=== PATIENT | male | born 2000 | race Caucasian/White ===

== ENCOUNTER 2024-08-03 16:23 | Inpatient (IN) | payer MEDICAID ==
[~2024-08-03] VITALS: Ht 177.8 cm; Wt 90.7 kg
[2024-08-03 16:46] LABS: BASOPHILS ABSOLUTE AUTO 0.05 K/mm3 (0.00-0.23); BASOPHILS PERCENT AUTO 0 % (0-2); EOSINOPHILS ABSOLUTE AUTO 0.04 K/mm3 (0.00-0.68); EOSINOPHILS PERCENT AUTO 0 % (0-6); Hematocrit 42.1 % (37.0-53.0); IMMATURE GRAN ABSOLUTE AUTO 0.21 K/mm3 (0.00-0.10); IMMATURE GRAN PERCENT AUTO 1 % (0-1); LYMPHOCYTES ABSOLUTE AUTO 0.65 K/mm3 (0.84-5.20); LYMPHOCYTES PERCENT AUTO 3 % (21-46); MONOCYTES ABSOLUTE AUTO 1.35 K/mm3 (0.16-1.47); MONOCYTES PERCENT AUTO 6 % (4-13); Mean Corpuscular HGB 31.6 pg (26.0-34.0); Mean Corpuscular HGB Conc 35.6 g/dL (31.5-36.5); Mean Corpuscular Volume 89 fL (80-100); Mean Platelet Volume 10.4 fL (9.1-12.4); NEUTROPHILS ABSOLUTE AUTO 19.18 K/mm3 (1.96-9.15); NEUTROPHILS PERCENT AUTO 89 % (41-73); Platelet Count 189 K/mm3 (150-400); RDW Coefficient Variation 12.8 % (11.7-14.2); RDW Standard Deviation 41.8 fL (35.1-46.3); Red Blood Cell Count 4.75 M/mm3 (4.30-5.90); White Blood Cell Count 21.48 K/mm3 (4.00-11.30)
[2024-08-03 17:03] LABS: Albumin, Blood 3.6 g/dL (3.4-5.0); Albumin/Globulin Ratio 0.9 (0.8-1.8); Bilirubin, Total 0.9 mg/dL (0.1-1.0); Bun/Creatinine Ratio 17.5 (12.0-20.0); Calcium, Blood 9.4 mg/dL (8.5-10.1); Creatinine, Blood 0.86 mg/dL (0.60-1.20); Globulin, Blood 4.1 g/dL (2.2-4.0); Potassium, Blood 3.3 mmol/L (3.5-5.5); Total Protein, Blood 7.7 g/dL (6.4-8.2)
[2024-08-03] MEDS ORDERED: Ketorolac Tromethamine 30mg Vial IV ONE (17:10)
[2024-08-03] MEDS ORDERED: Ondansetron HCl 2 MG / ML 2ML Vial IV ONE (17:10)
[2024-08-03] MEDS ORDERED: Morphine Sulfate 4 MG/1 ML Injection IV ONE (17:50)
[2024-08-03] MEDS ORDERED: Piperacillin/Tazobactam Sod 4.5 GM in NS 100 ML IV ONE (18:20)
[2024-08-03] MEDS ORDERED: NS 1,000 ML IV SCH (18:25)
[2024-08-03] MEDS ORDERED: Acetaminophen 325 MG TABLET PO PRN (19:15)
[2024-08-03] MEDS ORDERED: FLU VACC TS2024-25(6MOS UP)/PF 45 MCG/0.5 ML SYRINGE IM ONE (19:15)
[2024-08-03] MEDS ORDERED: HYDROmorphone HCl/Pf 1MG SYR IV PRN (19:15)
[2024-08-03] MEDS ORDERED: Ondansetron HCl 2 MG / ML 2ML Vial IV PRN (19:15)
[2024-08-03] MEDS ORDERED: OxyCODONE HCL 5 MG TAB PO PRN (19:15)
[2024-08-03] MEDS ORDERED: Lactated Ringer's 1,000 ML IV SCH (19:30)
[2024-08-03 22:03] VITALS: BP 125/62
[2024-08-04] VITALS (19 sets, daily range): BP systolic 103–135; BP diastolic 48–93
[2024-08-04] MEDS ORDERED: Piperacillin/Tazobactam Sod 3.375 GM in NS 100 ML IV SCH
[2024-08-04] MEDS ORDERED: Ketorolac Tromethamine 15mg Vial IV PRN
[2024-08-04] MEDS ORDERED: NS 250 ML IV PRN (01:05)
--- NOTE | 2024-08-04 06:00 | NUR ---
SHIFT SUMMARY: JANET IS A&OX4. VSS, NO ACUTE EVENTS OVERNIGHT. HE WAS MADE NPO AT MIDNIGHT IN ANTICIPATION OF SURGICAL INTERVENTION TODAY. HE IS URINATING WITHOUT DIFFICULTY, IS INDEPENDENT IN THE ROOM, AND THE IV TO THE RIGHT AC IS PATENT, IV FLUIDS INFUSING. HE REPORTS ADEQUATE PAIN MANAGEMENT WITH MEDICATIONS PER MAR. HE IS LYING IN BED WITH THE CALL LIGHT IN REACH. WILL GIVE REPORT TO DAY SHIFT RN.
[2024-08-04 06:50] LABS: BASOPHILS ABSOLUTE AUTO 0.04 K/mm3 (0.00-0.23); BASOPHILS PERCENT AUTO 0 % (0-2); EOSINOPHILS ABSOLUTE AUTO 0.04 K/mm3 (0.00-0.68); EOSINOPHILS PERCENT AUTO 0 % (0-6); Hematocrit 36.3 % (37.0-53.0); Hemoglobin 12.8 g/dL (13.5-17.5); IMMATURE GRAN ABSOLUTE AUTO 0.19 K/mm3 (0.00-0.10); IMMATURE GRAN PERCENT AUTO 1 % (0-1); LYMPHOCYTES ABSOLUTE AUTO 0.69 K/mm3 (0.84-5.20); LYMPHOCYTES PERCENT AUTO 4 % (21-46); MONOCYTES ABSOLUTE AUTO 1.26 K/mm3 (0.16-1.47); MONOCYTES PERCENT AUTO 7 % (4-13); Mean Corpuscular HGB Conc 35.3 g/dL (31.5-36.5); Mean Corpuscular Volume 91 fL (80-100); Mean Platelet Volume 10.8 fL (9.1-12.4); NEUTROPHILS ABSOLUTE AUTO 14.99 K/mm3 (1.96-9.15); NEUTROPHILS PERCENT AUTO 87 % (41-73); Platelet Count 145 K/mm3 (150-400); RDW Coefficient Variation 13.1 % (11.7-14.2); RDW Standard Deviation 43.4 fL (35.1-46.3); White Blood Cell Count 17.21 K/mm3 (4.00-11.30)
[2024-08-04 07:19] LABS: Magnesium, Blood 1.9 mg/dL (1.6-2.4)
[2024-08-04 07:20] LABS: Calcium, Blood 8.4 mg/dL (8.5-10.1); Creatinine, Blood 0.87 mg/dL (0.60-1.20); Potassium, Blood 3.5 mmol/L (3.5-5.5)
[2024-08-04] MEDS ORDERED: propofoL 20 ML IV ONE (09:14)
[2024-08-04] MEDS ORDERED: FentaNYL Citrate 50 MCG/ML 2 ML Injection ONE ×2 (09:14→11:41)
[2024-08-04] MEDS ORDERED: Midazolam HCl 1MG / ML 2ML Vial ONE (09:14)
[2024-08-04] MEDS ORDERED: Lactated Ringer's 1,000 ML IV SCH (09:15)
--- NOTE | 2024-08-04 09:35 | NUR ---
PT HAS 20G IV TO RIGHT AC THAT FLUSHES WELL AND FLOWS TO GRAVITY.
[2024-08-04] MEDS ORDERED: Bupivacaine 0.5% HCl 5 MG/ML 30MLVIAL ONE (10:11)
--- NOTE | 2024-08-04 10:38 | NUR ---
0930 PT BROUGHT FROM FLOOR TO DAY SURGERY FOR PROCEDURE. VSS. PT ON RA. History, Chart, Medications and Allergies reviewed before start of procedure. Lungs clear T/O to Auscultation. Patient confirms NPO status and agrees with scheduled surgery. Pre-Op teaching done. Pt verbalizes understanding. PT REPORTS TOO PAINFUL FOR CHLORHEXIDINE/SHAVE PREP, OR TEAM NOTIFIED. PT BELONGINGS LEFT IN ROOM ON MEDICAL FLOOR FOR SAFEKEEPING. PT PHONE GIVEN TO MOM FOR SAFEKEEPING.
[2024-08-04] MEDS ORDERED: Ketorolac Tromethamine 30mg Vial ONE (10:59)
[2024-08-04] MEDS ORDERED: Sugammadex Sodium 200 MG/2ML SDV (100 MG/ML) ONE (10:59)
[2024-08-04] MEDS ORDERED: Rocuronium Bromide 10 MG/ML 5ML Injection IV ONE (11:41)
[2024-08-04] MEDS ORDERED: Lactated Ringer's 1,000 ML IV ONE (12:48)
--- NOTE | 2024-08-04 14:35 | NUR ---
arrival PT ARRIVED TO UNIT FROM PACU S/P LAP APPY. MAISHA DRAIN IN PLACE PATENT AND DRAINING. LAP SITES CDI X3, ABD SOFT TO TOUCH. PT TIRED ON ARRIVAL BUT WAKING UP TOLERATING SIPS OF WATER. PILLOW PROVIDED AND EDUCATED ON SPLINTING WITH COUGHING. PT REPORTS PAIN TOLERABLE AT THIS TIME. DENIES NEED FOR ANY MEDICATION. EDUCATED UNIT MANAGER LIGHT USE MOM AT BEDSIDE.
--- NOTE | 2024-08-04 18:03 | NUR ---
SHIFT SUMMARY PT WAS INITIALLY VERY SLEEPY, BUT HAS NOW PROGRESSED TO BEING ALERT. VITALS REMAIN WNL. PT HAS NO RESP DISTRESS OR NOTABLE ISSUES POST-OP. PAIN CONTROLLED WITH RE-POSITIONING AND MEDICATIONS. EMILIANO CLEAR LIQUIDS AND PO MEDS. MOM AT BEDSIDE MOST OF THE TIME, PLAN TO STAY WITH PT TONIGHT. SHE STS HE HAS ISSUES WITH ANXIETY, SO SHE THINK'S THAT WILL BE BEST FOR HIM. MAISHA DRAINING SEROSANGUINOUS FLUID - EMPTIED X1 40ML. SURGICAL SITES WNL. PT HAS NOT VOIDED OR GOT OUT OF BED. PT CURRENTLY WATCHING TV AND CALL LIGHT IS IN REACH.
[2024-08-05 00:01] VITALS: BP 112/61
[2024-08-05 04:23] VITALS: BP 127/64
--- NOTE | 2024-08-05 06:38 | NUR ---
POD 1 S/P LAP APPY. PT W/LOW GRADE TEMP EARLY IN SHIFT, IMPROVED AFTER REMOVING LAYERS AND REDUCING ROOM TEMP. PT HAS REMAINED AFEBRILE T/O NIGHT, OTHER VSS. INCISIONS CDI, MAISHA W/50ML LIGHT SS DRNG. PAIN MGD PER EMAR W/REP RELIEF. PT EMILIANO CL PO, REP +FLATUS, IS VOIDING URINE W/O DIFFICULTY. PT DID C/O NAUSEA WHEN FIRST UP, NO EMESIS. IV ABX CONT PER EMAR.
[2024-08-05 07:16] VITALS: BP 120/60
--- NOTE | 2024-08-05 08:51 | NUR ---
PT MEDICATED FOR PAIN AND IS NOW SITTING IN CHAIR.
[2024-08-05 15:12] VITALS: BP 129/66
--- NOTE | 2024-08-05 16:36 | NUR ---
SHIFT SUMMARY PT WAS OUT OF BED SITTING IN CHAIR FOR MOST OF THE MORNING. AMBULATED AROUND UNIT APPROX 200FT. MEDICATED OCCASIONALLY FOR PAIN. DIET ADVANCED TO REGULAR AND PT EMILIANO WELL. VOIDED X1. PT HAS GOOD STRONG COUGH WITH ABD BINDER IN PLACE. SURGICAL SITES APPEAR TO BE HEALING WELL. PT AND FAMILY UPDATED ON PLAN OF CARE TO GET ONGOING IV ABX. ADEQUATE PAIN CONTROL. NO OTHER ISSUES NOTED.
[2024-08-05 19:42] VITALS: BP 132/70
[2024-08-05 19:46] VITALS: BP 132/70
[2024-08-06 04:28] VITALS: BP 139/74
[2024-08-06 04:38] LABS: BASOPHILS ABSOLUTE AUTO 0.02 K/mm3 (0.00-0.23); BASOPHILS PERCENT AUTO 0 % (0-2); EOSINOPHILS ABSOLUTE AUTO 0.26 K/mm3 (0.00-0.68); EOSINOPHILS PERCENT AUTO 2 % (0-6); Hematocrit 34.5 % (37.0-53.0); Hemoglobin 11.9 g/dL (13.5-17.5); IMMATURE GRAN ABSOLUTE AUTO 0.08 K/mm3 (0.00-0.10); IMMATURE GRAN PERCENT AUTO 1 % (0-1); LYMPHOCYTES ABSOLUTE AUTO 1.18 K/mm3 (0.84-5.20); LYMPHOCYTES PERCENT AUTO 10 % (21-46); MONOCYTES ABSOLUTE AUTO 1.42 K/mm3 (0.16-1.47); MONOCYTES PERCENT AUTO 12 % (4-13); Mean Corpuscular HGB 31.5 pg (26.0-34.0); Mean Corpuscular HGB Conc 34.5 g/dL (31.5-36.5); Mean Corpuscular Volume 91 fL (80-100); Mean Platelet Volume 10.5 fL (9.1-12.4); NEUTROPHILS PERCENT AUTO 75 % (41-73); Platelet Count 179 K/mm3 (150-400); RDW Coefficient Variation 13.5 % (11.7-14.2); RDW Standard Deviation 45.7 fL (35.1-46.3); Red Blood Cell Count 3.78 M/mm3 (4.30-5.90); White Blood Cell Count 11.86 K/mm3 (4.00-11.30)
[2024-08-06 05:03] LABS: Bun/Creatinine Ratio 11.4 (12.0-20.0); Calcium, Blood 8.8 mg/dL (8.5-10.1); Creatinine, Blood 0.7 mg/dL (0.60-1.20); Potassium, Blood 3.3 mmol/L (3.5-5.5)
--- NOTE | 2024-08-06 06:23 | NUR ---
NOC SHIFT SUMMARY PT ORIENTED X4, FLAT AFFECT. CALM AND COOPERATIVE. VSS. ON RA. LUNGS CLEAR TO DIM WITH COUGH NOTED. EDUCATED ON IS AND USED OVERNIGHT. ABD SITES CDI, 20ML FROM TAWANDA FERRERA. LOW GRADE TEMP X1 OVERNIGHT. PAIN TOLERATED WITH TYLENOL AND OXYCODONE APPROX Q6 PRN. + FLATULENCE, NO BM.
[2024-08-06 07:22] VITALS: BP 125/71
[2024-08-06] MEDS ORDERED: OXYC5 PO (09:44)
[2024-08-06] MEDS ORDERED: AMOCLA875 PO (09:44)
--- NOTE | 2024-08-06 12:25 | NUR ---
DISCHARGE MOM EXHIBITS ABILITY TO MANAGE MAISHA DRAIN. PT ANXIOUS ABOUT DC BUT OVERALL FEELS COMFORTABLE. PASSING GAS & DISCUSSED BOWEL CARE. AMBULATES EASILY. TOLERATING BITES OF FOOD & DRINKING WATER. ESCORTED OUT VIA WC.
== END 2024-08-06 12:10 | disposition home or self-care (01) | DRG 330 ==
LOC: ER 16:23 → SURS 16:24 → MEDS 16:24 → SURS 08-04 13:05
PROVIDERS: Emergency Medicine; Surgery; ADMIT Surgery
PROC: 0DTJ4ZZ Resection of Appendix, Percutaneous Endoscopic Approach (ICD-10-PCS; 2024-08-04)
PROC: 0W9G40Z Drainage of Peritoneal Cavity with Drainage Device, Percutaneous Endoscopic Approach (ICD-10-PCS; 2024-08-04)
PROC: 8E0W4CZ Robotic Assisted Procedure of Trunk Region, Percutaneous Endoscopic Approach (ICD-10-PCS; 2024-08-04)
PROC: 0DQ Gastrointestinal System, Repair (ICD-10-PCS; principal; 2024-08-04 11:00)
DX: K35.201 Acute appendicitis with generalized peritonitis, with perforation, without abscess (principal); R18.8 Other ascites; F17.290 Nicotine dependence, other tobacco product, uncomplicated
CPT/HCPCS: 36415; 74177; 80048; 80053; 83690; 83735; 85025; 88304; 96365-59; 96366; 96375; 99285-25; A9270; G0378; J1170; J1885; J2250; J2270; J2405; J2543; J2704; J3010; J7030; J7050; J7120; Q9967

== ENCOUNTER 2024-08-07 02:48 | Inpatient (IN) | payer MEDICAID ==
[~2024-08-07] VITALS: Ht 177.8 cm; Wt 85.3 kg
[~2024-08-07 02:48] MED LIST: AMOCLA875 PO; OXYC5 PO
[2024-08-07] MEDS ORDERED: NS 1,000 ML IV SCH (03:50)
[2024-08-07] MEDS ORDERED: Ketorolac Tromethamine 30mg Vial IV ONE (03:50)
[2024-08-07] MEDS ORDERED: Ondansetron HCl 2 MG / ML 2ML Vial IV ONE (03:50)
[2024-08-07 04:00] LABS: BASOPHILS ABSOLUTE AUTO 0.07 K/mm3 (0.00-0.23); BASOPHILS PERCENT AUTO 1 % (0-2); EOSINOPHILS ABSOLUTE AUTO 0.24 K/mm3 (0.00-0.68); EOSINOPHILS PERCENT AUTO 2 % (0-6); Hematocrit 37.6 % (37.0-53.0); Hemoglobin 13.3 g/dL (13.5-17.5); IMMATURE GRAN ABSOLUTE AUTO 0.29 K/mm3 (0.00-0.10); IMMATURE GRAN PERCENT AUTO 2 % (0-1); LYMPHOCYTES ABSOLUTE AUTO 1.29 K/mm3 (0.84-5.20); LYMPHOCYTES PERCENT AUTO 9 % (21-46); MONOCYTES PERCENT AUTO 13 % (4-13); Mean Corpuscular HGB 31.7 pg (26.0-34.0); Mean Corpuscular HGB Conc 35.4 g/dL (31.5-36.5); Mean Corpuscular Volume 90 fL (80-100); Mean Platelet Volume 10.4 fL (9.1-12.4); NEUTROPHILS ABSOLUTE AUTO 10.13 K/mm3 (1.96-9.15); NEUTROPHILS PERCENT AUTO 73 % (41-73); Platelet Count 238 K/mm3 (150-400); RDW Coefficient Variation 13.3 % (11.7-14.2); Red Blood Cell Count 4.19 M/mm3 (4.30-5.90); White Blood Cell Count 13.82 K/mm3 (4.00-11.30)
[2024-08-07 04:23] LABS: Albumin, Blood 2.5 g/dL (3.4-5.0); Albumin/Globulin Ratio 0.6 (0.8-1.8); Bun/Creatinine Ratio 15.7 (12.0-20.0); Calcium, Blood 9.1 mg/dL (8.5-10.1); Creatinine, Blood 0.64 mg/dL (0.60-1.20); Globulin, Blood 4.5 g/dL (2.2-4.0)
[2024-08-07] MEDS ORDERED: Lactated Ringer's 1,000 ML IV SCH ×2 (04:35→06:15)
[2024-08-07] MEDS ORDERED: Potassium Chl 20MEQ/Water100ML 100 ML IV SCH (04:35)
[2024-08-07] MEDS ORDERED: HYDROmorphone HCl/Pf 1MG SYR IV PRN ×2 (06:05→06:20)
[2024-08-07] MEDS ORDERED: OxyCODONE HCL 5 MG TAB PO PRN (06:15)
[2024-08-07] MEDS ORDERED: LORazepam 2 MG/ML 1ML Injection IV PRN (06:15)
[2024-08-07] MEDS ORDERED: FLU VACC TS2024-25(6MOS UP)/PF 45 MCG/0.5 ML SYRINGE IM SCH (06:20)
[2024-08-07] MEDS ORDERED: TraZODone HCl 50 MG Tab PO PRN (06:20)
[2024-08-07] MEDS ORDERED: Ondansetron HCl 2 MG / ML 2ML Vial IV PRN (06:20)
[2024-08-07] MEDS ORDERED: Metoclopramide HCl 5MG / ML 2ML Vial IV PRN (06:20)
[2024-08-07] MEDS ORDERED: Ampicillin Sod/Sulbactam Sod 3 GM in NS 100 ML IV ONE (06:30)
[2024-08-07] MEDS ORDERED: Scopolamine Hydrobromide Patch TOP SCH (09:00)
[2024-08-07 12:24] VITALS: BP 135/69
[2024-08-07 12:25] LABS: Source, Urine Clean Catch
[2024-08-07 12:33] LABS: Appearance, Urine Clear (Clear); Blood, Urine Neg (Neg); Glucose Qualitative, Urine Neg (Neg); Ketones, Urine 4+ (Neg); Leukocyte Esterase, Urine Neg (Neg); Nitrite, Urine Neg (Neg); Protein, Urine 2+ (Neg); Specific Gravity, Urine 1.015 (1.003-1.022); Urobilinogen, Urine 3+ (Normal)
[2024-08-07 12:41] LABS: Bilirubin, Urine 1+ (Neg)
[2024-08-07 12:42] LABS: Color, Urine Yellow (P-Yellow)
[2024-08-07 12:43] LABS: Amorphous Light (0-Heavy); Bacteria Rare /hpf; Red Blood Cells, Urine 0-2 /hpf (0-2); Squamous Epithelial Cells Rare /hpf (Few); White Blood Cells, Urine 0-2 /hpf (0-5)
--- NOTE | 2024-08-07 12:55 | NUR ---
PT ARRIVED TO RM 228 FROM ED. PT NOW SLEEPING. BREATHING E/U. CALL LIGHT IN REACH, MOM BEDSIDE.
[2024-08-07 15:31] VITALS: BP 137/70
--- NOTE | 2024-08-07 17:06 | NUR ---
SUMMARY NO ACUTE CH[facility] MEDICATED PT PER ORDERS FOR ABDOMINAL PAIN. IV FLUIDS INFUSING PER ORDERS. PT AMBULATED TO RESTROOM AND VOIDED. REPORTED PASSED FLATUS. EMPTIED MAISHA DRAIN OF SS FLUID DRAINAGE MULTIPLE TIMES SINCE ARRIVING TO UNIT. PT RESTING IN BED, CALL LIGHT IN REACH.
[2024-08-07] MEDS ORDERED: Piperacillin/Tazobactam Sod 3.375 GM in NS 100 ML IV SCH (18:00)
[2024-08-07] MEDS ORDERED: NS 250 ML IV PRN (18:30)
[2024-08-07 19:27] VITALS: BP 128/66
[2024-08-08 02:40] VITALS: BP 117/63
[2024-08-08 05:28] LABS: Hemoglobin 10.3 g/dL (13.5-17.5); Mean Corpuscular HGB 31.1 pg (26.0-34.0); Mean Corpuscular HGB Conc 34.3 g/dL (31.5-36.5); Mean Corpuscular Volume 91 fL (80-100); Platelet Count 248 K/mm3 (150-400); RDW Coefficient Variation 13.9 % (11.7-14.2); RDW Standard Deviation 46.1 fL (35.1-46.3); Red Blood Cell Count 3.31 M/mm3 (4.30-5.90); White Blood Cell Count 9.81 K/mm3 (4.00-11.30)
[2024-08-08 05:57] LABS: BASOPHILS PERCENT MAN 0 % (0-2); EOSINOPHILS ABSOLUTE MAN 0.49 K/mm3 (0.00-0.68); EOSINOPHILS PERCENT MAN 5 % (0-6); LYMPHOCYTES ABSOLUTE MAN 1.86 K/mm3 (0.84-5.20); LYMPHOCYTES PERCENT MAN 19 % (21-46); MONOCYTES ABSOLUTE MAN 1.27 K/mm3 (0.16-1.47); MONOCYTES PERCENT MAN 13 % (4-13); NEUTROPHILS ABSOLUTE MAN 6.18 K/mm3 (1.96-9.15); SEG NEUTROPHILS PERCENT MAN 63 % (41-73); TOTAL CELLS COUNTED 100
[2024-08-08 05:58] LABS: Bun/Creatinine Ratio 15.3 (12.0-20.0); Calcium, Blood 8.3 mg/dL (8.5-10.1); Creatinine, Blood 0.65 mg/dL (0.60-1.20); Potassium, Blood 3.3 mmol/L (3.5-5.5)
--- NOTE | 2024-08-08 06:15 | NUR ---
NOC SUMMARY- PT PAIN MANAGED WELL. PT HAS REMAINED NPO. PT HAD A LARGE MIX BM OF LIQUID AND FORMED. PT STILL REPORTS ABD DISCOMFORT. MAISHA DRAINING SS FLUID. LAP SITES C/D/I. PT SHOWERED AND REPORTS FEELING BETTER. CALL LIGHT IN REACH.
[2024-08-08 07:56] VITALS: BP 122/65
[2024-08-08] MEDS ORDERED: Potassium Chl 20MEQ/Water100ML 100 ML IV SCH (08:40)
--- NOTE | 2024-08-08 09:21 | NUR ---
PT DECLINED IV POTASSUIM. PT STATED THAT IT HURT. THIS NURSE DILUTED THE SOLUTION WITH NS AND SLOWED RATE OF INFUSION, PT SAID THAT IT WAS STILL HURTING AND BECAME AGITATED STATING THAT HE DID NOT WANT IT ANYMORE, TELLING ME "TO TAKE IT OUT". EDUCATED PATIENT ON THE NEED FOR POTASSIUM REPLACEMENT. PT STILL REFUSING AT THIS TIME. POTASSIUM STOPPED. WILL FURTHER DISCUSS BEGINING K AGAIN WHEN PATIENT IS LESS AGITATED.
[2024-08-08] MEDS ORDERED: Potassium Chloride 20 MEQ/15 ML UDC PO ONE (10:20)
[2024-08-08 15:23] VITALS: BP 127/75
--- NOTE | 2024-08-08 18:25 | NUR ---
SHIFT SUMMARY PT TOLERATING CLEAR LIQUIDS. REPORTS HAVING TWO BM. EATING, DRINKING, VOIDING WITHOUT DIFFICULTY. MAISHA DRAIN IN PLACE COMPRESSED AND PUTTING OUT SEROSANGUINEOUS FLUID, DRESSING CHANGED THIS AFTERNOON. PAIN MANAGED PER EMAR. VSS. CALL LIGHT WITHIN REACH, BED IN LOWEST POSITION.
[2024-08-08 19:14] VITALS: BP 130/72
[2024-08-09 02:59] VITALS: BP 124/68
--- NOTE | 2024-08-09 04:18 | NUR ---
SHIFT SUMMARY S/P APPY W/READMISSION. LAP SITES APPEAR C/D/I, MAISHA SITE IS C/D/I. MINIMAL SS DRAINAGE NOTED FROM MAISHA. VSS. PT SLEPT ON AND OFF T/O THE NIGHT. SBA TO THE BATHROOM, VOIDING W/O DIFFICULTY. NO BM TONIGHT BUT PASSING FLATTUS. MEDICATED FOR PAIN W/DILAUDID. PT UNSURE ABOUT TRYING PO PAIN MEDICATION BECAUSE OF THE NAUSEA HE EXPERIENCED AT HOME. WANTING TO SPEAK TO THE DOCTOR FURTHER ABOUT THIS. TOLLERATING CLEAR PO INTAKE W/O EMESIS. ONE EPISODE OF NAUEA NOTED, THIS RESOLVED WITH REGLAN. OVERALL, NO ACUTE EVENTS NOTED. PLAN TO ADVANCE DIET PER SURGEON. THE PATIENT IS CURRENTLY RESTING, IN NO DISTRESS, CALL LIGHT IN REACH
[2024-08-09 07:35] VITALS: BP 127/68
[2024-08-09] MEDS ORDERED: Scopolamine Hydrobromide Patch TOP ONE (13:15)
[2024-08-09] MEDS ORDERED: ONDA4 PO (13:30)
--- NOTE | 2024-08-09 14:17 | NUR ---
DISCHARGE SUMMARY S/P LAP APPY, A/OX4, VSS, TOLERATING PO, INDEPENDENT IN THE ROOM, MAISHA DRAIN WITH SCANT AMT OF SEROUS DRAINAGE, SOME NAUSEA ASSOCIATED WITH NARCOTICS ADMINISTRATION. DISCUSSED DC INSTRUCTIONS WITH HIM AND HIS MOM INCLUDING HOME CARE, MEDICATIONS, AND FOLLOW UP TO BE DONE AT HOME WITH PCP. DRAIN LOG PROVIDED, NO QUESTIONS AT THIS TIME.
--- NOTE | 2024-08-09 14:21 | NUR ---
ROSALINA ORDER - CALL IN TO [facility] Sunday08/11/24 SURGERY PROVIDED ORDER FOR ROSALINA AFTER [facility] FINISHED, [facility] SUNDAY. MOM REPORTS PLAN TO GO BACK TO [place], ADVISED SHE CAN CALL AND HAVE THIS CALLED TO A LOCAL PHARMACY ON SUNDAY. MOM AND PATIENT OK WITH THIS PLAN. ZOFRAN ORDER LAST SCANNED ORDER AFTER [facility] ORDER.
== END 2024-08-09 13:57 | disposition home or self-care (01) | DRG 394 ==
LOC: ER 02:48 → ERHOLD 02:49 → SURS 06:13
PROVIDERS: Emergency Medicine; ADMIT Surgery
DX: K91.89 Other postprocedural complications and disorders of digestive system (principal); K56.7 Ileus, unspecified; E86.0 Dehydration; E87.6 Hypokalemia; Y83.9 Surgical procedure, unspecified as the cause of abnormal reaction of the patient, or of later complication, without mention of misadventure at the time of the procedure; F41.9 Anxiety disorder, unspecified; Z90.49 Acquired absence of other specified parts of digestive tract; Z79.891 Long term (current) use of opiate analgesic; Z79.2 Long term (current) use of antibiotics
CPT/HCPCS: 36415; 74177; 80048; 80053; 81001; 83605; 85025; 96365-59; 96375; 99285-25; A9270; J0295; J1170; J1885; J2060; J2405; J2543; J2765; J3480; J7030; J7050; J7120; Q9967